=== PATIENT | female | born 1940 | race Caucasian/White ===

== ENCOUNTER → 2018-07-07 | Outpatient (CLI) | payer BC ==
[~2018-07-07] MED LIST: ACET-2146 PO; AMLO-113 PO; ASPI-757 PO; ATOR10TA65 PO; BLOO1STR16 MC; CALC1TAB32 PO; CHOL10005 PO; DOCU-416 PO; ENAL-18 PO; METF-450 PO; MULT-865 PO; SENN-74 PO; VIT1TABL83 PO
[2018-07-07 13:42] LABS: PLATELET COUNT, AUTOMATED 316 K/uL (150-450)
[2018-07-07 14:05] LABS: LDL CHOLESTEROL 72 mg/dl
== END ==
LOC: LAB 13:15
PROVIDERS: ATTEND Emergency Medicine
DX: R10.819 Abdominal tenderness, unspecified site (principal); I10 Essential (primary) hypertension
CPT/HCPCS: 36415; 81001; 82040; 82247; 82306; 82310; 82374; 82435; 82465; 82565; 82607; 82947; 83036; 83718; 84075; 84132; 84155; 84295; 84443; 84450; 84460; 84478; 84520; 85025

== ENCOUNTER → 2018-07-14 | Outpatient (CLI) | payer BC ==
--- NOTE | 2018-07-14 14:38 | RADIOLOGY IMAGING REPORT ---
[place] [facility] [place] Edwige Ross : 1940 MR: [id number] V: [id number] EXAM DATE: ORDERING PHYSICIAN: DELIA LARA TECHNOLOGIST: Location: [facility] [place] Patient: Edwige Ross : 1940 Visit/Account:[id number] Date of Sevice: 07/14/2018 DEXA Scan Clinical history: Osteopenia. Comparison: None available. LUMBAR SPINE: The bone mineral density (BMD) measured from L1-L4 correlates with a Z-score -0.1 and a T-score of -1 .2 which is osteopenia as defined by the World Health Organization. The corresponding risk of fractu re in the lumbar spine is increased compared with a young adult reference population. HIP: Bone mineral density (BMD) measured in the Left femoral neck region correlates with a Z-score -1.1 an d a T-score of -2.6 which is osteoporosis as defined by the World Health Organization. The correspon ding risk of fracture in the hip is high compared with a young adult reference population. Bone mineral density (BMD) measured in the Femoral Neck region measures 0.674 g/cm2. Impression: 1. Lumbar spine: Osteopenia. 2. Left femoral neck region: Osteoporosis. 3. Femoral Neck: Bone Mineral Density is 0.674 g/cm2 The next DEXA scan of this patient should include the following sites: L1-L4 and the left hip. FRAX? WHO Fracture Risk Assessment Tool link: <http://www.shef.ac.uk/FRAX/tool.jsp?locationValue=9> PLEASE NOTE: 1) The World Health Organization defines low BMD as follows: T-score Normal > -1 Osteopenia < -1 and > -2.5 Osteoporosis < -2.5 without fractures Established osteoporosis < -2.5 with fractures 2) In general, you may wish to consider: Diagnosis Treatment Follow-up DEXA Normal BMD Prevention 2-3 years Osteopenia Prevention/therapy 1-2 years Osteoporosis Therapy Yearly 3) Fracture risk estimated from the T-score is more accurate for vertebral fractures (often spontane ous) than for hip fractures. Report Dictated By: Ochoa Lindquist at 07/14/2018 2:32 PM Report E-Signed By: Ochoa Lindquist at 07/14/2018 2:33 PM WSN:[email or web address]
== END ==
LOC: RAD 01:30
PROVIDERS: ATTEND Emergency Medicine
DX: M81.0 Age-related osteoporosis without current pathological fracture (principal); M85.80 Other specified disorders of bone density and structure, unspecified site; Z78.0 Asymptomatic menopausal state
CPT/HCPCS: 77080

== ENCOUNTER → 2018-07-28 | Outpatient (CLI) | payer BC ==
[~2018-07-28] MED LIST changes: +ATOR40TA69 PO
== END ==
LOC: LAB 09:24
PROVIDERS: ATTEND Emergency Medicine
DX: M81.0 Age-related osteoporosis without current pathological fracture (principal)
CPT/HCPCS: 36415; 82310; 83970

== ENCOUNTER → 2018-08-14 | Outpatient (CLI) | payer MEDICARE, BC ==
--- NOTE | 2018-08-14 13:42 | RADIOLOGY IMAGING REPORT ---
[place] [facility] [place] NAME: Edwige Ross : 1940 MR: [id number] V: [id number] EXAM DATE: ORDERING PHYSICIAN: DELIA LARA TECHNOLOGIST: Location: [facility] - [place] Patient: Edwige Ross : 1940 Visit/Account:[id number] Date of Sevice: 08/14/2018 CHEST SINGLE AP INDICATION: Pre-MRI, history of heart procedure COMPARISON: None available FINDINGS: The cardiac silhouette is upper limits of normal There is no focal infiltrate or lobar consolidation. Calcified granuloma seen within the left upper lobe. There is no pneumothorax or pleural effusion. No radiopaque foreign body is identified. IMPRESSION: 1. No radiopaque foreign body identified. Report Dictated By: Yogesh Kathleen at 08/14/2018 1:37 PM Report E-Signed By: Yogesh Kathleen at 08/14/2018 1:38 PM WSN:[email or web address]
--- NOTE | 2018-08-14 15:52 | RADIOLOGY IMAGING REPORT ---
FACILITY: [facility] - [place] PATIENT NAME: Edwige Ross : 1940 MR: [id number] V: [id number] EXAM DATE: ORDERING PHYSICIAN: DELIA LARA TECHNOLOGIST: Location: [facility] Patient: Edwige Ross : 1940 Visit/Account:[id number] Date of Sevice: 08/14/2018 BRAIN W/O CONTRAST memory loss ADDITIONAL PERTINENT HISTORY: None. COMPARISON STUDIES: None. TECHNIQUE: Multi-planar, multi-sequence brain MRI was performed without IV contrast administration. FINDINGS: Ventricles / sulci / fissures: Negative. Masses / hemorrhage / midline shift: Negative. Intra-axial: There are multiple small foci of increased FLAIR and T2 signal intensity in the periven tricular and subcortical white matter without evidence of mass effect or restricted diffusion.. Smal l area of encephalomalacia in the posterior parietal-occipital region which may represent an old smal l watershed infarct Extra-axial fluid collections: Negative. Intracranial vasculature and dural sinuses: Negative. Skull base / calvarium: Negative. Visualized mastoid air cells / paranasal sinuses: Well aerated. Orbits: Negative. Scalp: Negative Upper neck:Negative. IMPRESSION: Multiple small foci of increased FLAIR and T2 signal intensity in the periventricular and subcortical white matter that appear nonspecific. Likely represents areas of chronic microischemic change. Dif ferential diagnosis would include the less likely etiologies of a demyelinating process or vasculitis . 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
== END ==
LOC: MRI 03:27
PROVIDERS: ATTEND Emergency Medicine
DX: R41.3 Other amnesia (principal)
CPT/HCPCS: 70551; 71045